=== PATIENT | female | born 1935 | race Caucasian/White ===

== ENCOUNTER 2017-01-22 12:35 | Outpatient (CLI) | payer MEDICARE, OTHER ==
[~2017-01-22] VITALS: Ht 165.1 cm; Wt 60.0 kg
[~2017-01-22 12:35] MED LIST: COUMADIN 5MG5 MG/TAB PO; DECADRON 4MG TAB4 MG PO; DILANTIN 100MG100 MG PO; LORTAB 5/500 501 TAB PO; MUCINEX DM 30 M1 TER PO; NORCO 325 MG-51 TAB PO; PROTONIX 40MG T40 MG PO; TESSALON PERLE100 MG PO; TESSALON PERLE200 MG PO; ZITHROMAX TRI-500 MG PO; ZITHROMAX Z PA250 MG PO; [UNRECOGNIZED DRUG - REMARK]
[2017-01-22] MEDS ORDERED: XARELTO20 MG PO (13:42)
[2017-01-22] MEDS ORDERED: DILANTIN 50MG C50 MG PO (13:43)
[2017-01-22] MEDS ORDERED: NORCO 325 MG-51 TAB PO (13:45)
[2017-01-22] MEDS ORDERED: CEPHALEXIN500 M1 PO (13:47)
[2017-01-22 13:58] VITALS: BP 143/54; PULSE 64; TEMP 97.5
[2017-01-22 15:30] VITALS: BP 132/51; PULSE 73; TEMP 98.1
== END 2017-01-22 16:43 | disposition home or self-care (01) ==
LOC: EUO 12:35 → COL.CAR 13:00 → EUO 16:43
DX: I63.9 Cerebral infarction, unspecified (principal); I08.0 Rheumatic disorders of both mitral and aortic valves; R94.31 Abnormal electrocardiogram [ECG] [EKG]
CPT/HCPCS: 27124; C1764

== ENCOUNTER 2019-12-10 12:44 | Inpatient (IN) | payer MEDICARE, OTHER ==
[~2019-12-10] VITALS: Ht 165.1 cm; Wt 64.7 kg
[~2019-12-10 12:44] MED LIST changes: +CEPHALEXIN500 M1 PO; +DILANTIN 50MG C50 MG PO; +XARELTO20 MG PO
[2019-12-10 13:30] VITALS: BP 123/57; PULSE 80; TEMP 99
[2019-12-10] MEDS ORDERED: VITAMIN B11000 MCG/M IM (13:35)
[2019-12-10] MEDS ORDERED: DILANTIN 100MG100 MG PO (13:36)
[2019-12-10] MEDS ORDERED: ULTRAM ER100 MG PO (13:37)
[2019-12-10] MEDS ORDERED: ZANAFLEX CAPSULE4 MG PO (13:38)
[2019-12-10 13:49] LABS: COLLECTION METHOD CLEAN CATCH
[2019-12-10 14:00] LABS: MUCOUS Present /lpf; PH 6 (5-8); SQUAMOUS EPITHELIAL 0-2 /hpf; URINE APPEARANCE Hazy; URINE BACTERIA Rare /hpf; URINE BILIRUBIN Negative (NEGATIVE); URINE BLOOD 3+ (NEGATIVE); URINE COLOR Yellow; URINE GLUCOSE Negative (NEGATIVE); URINE KETONE Negative (NEGATIVE); URINE LEUKOCYTE ESTERASE Trace (NEGATIVE); URINE NITRATE Positive (NEGATIVE); URINE PROTEIN(semi-quant) Negative (NEGATIVE); URINE RBC 20-50 /hpf; URINE UROBILINOGEN Negative (NEGATIVE)
--- NOTE | 2019-12-10 14:38 | NUR ---
Patient admitted from [facility]. Patient alert, sleepy. Patient transfered with EMS. Admission completed. Vss. Patient Pain with movement. Scds ble. Solomon to Rle. Cms intact. Int. Hospitalist aware of her arrival.
[2019-12-10 15:08] LABS: BASO % 0.3 % (0.0-2.0); EOS # 0.1 (0.0-0.7); EOS % 0.7 % (0-4.0); GRAN # 7.2 (1.4-6.5); GRAN % 79.9 % (42.2-75.2); HEMOGLOBIN 10.7 g/dl (12.5-16.0); LYMPH % 11.5 % (20.0-51.0); MEAN CELL VOLUME 87 fl (80.0-100.0); MEAN CORPUSCULAR HEMOGLOBIN 28 pg (27.0-31.0); MEAN CORPUSCULAR HGB CONC 33 g/dl (33.0-37.0); MEAN PLATELET VOLUME 10.2 fl (7.4-10.4); MONO # 0.6 (0.1-0.6); MONO % 7.2 % (1.7-9.3); PLATELET COUNT 162 K/mm3 (130-400); RED BLOOD COUNT 3.78 M/mm3 (4.10-5.30)
[2019-12-10 15:13] LABS: PROTHROMBIN TIME 11.7 SECONDS (9.7-12.8)
[2019-12-10 15:19] LABS: HEMATOCRIT 32.9 % (37.0-47.0)
[2019-12-10 15:46] LABS: ALBUMIN 3.7 gm/dL (3.5-5.0); BILIRUBIN,TOTAL 0.5 mg/dL (0.0-1.0); CREATININE, serum 0.59 (0.52-1.25); POTASSIUM 3.8 mmol/L (3.4-5.0); TOTAL PROTEIN 6.7 gm/dL (6.4-8.2)
[2019-12-10 15:53] LABS: PRE ALBUMIN 18.8 mg/dL (17.6-36.0)
[2019-12-10 16:21] VITALS: BP 129/38; PULSE 80; TEMP 99.1
--- NOTE | 2019-12-10 18:29 | NUR ---
Patient has been having alot of pain, repositioned for comfort. Pain medication per orders. Ice pack to hip. Labs, Ekg, Xrays completed. SHe has no interst in food. Hospitalist & ortho rounded. Scds & teds.
--- NOTE | 2019-12-10 19:40 | NUR ---
IV SITE TO LEFT ARM INFILTRATED. DC'D WITH ANGIOCATH INTACT. RESTARTED #22 TO LEFT WRIST ON SECOND ATTEMPT.
--- NOTE | 2019-12-10 20:01 | NUR ---
MEDICATED WITH MORPHINE 2MG IVP FOR LEFT HIP PAIN.
[2019-12-10 20:16] VITALS: BP 114/41; PULSE 45; TEMP 100.3
--- NOTE | 2019-12-10 21:30 | NUR ---
PT RESTING WELL AFTER LAST DOSE OF MORPHINE. IV SITE REMAINS PATENT TO LEFT WRIST.
[2019-12-11 00:17] VITALS: BP 115/36; PULSE 82; TEMP 98.6
--- NOTE | 2019-12-11 00:30 | NUR ---
Pt awake, has dentures and denture cup in her bed along with her denture tablets. Placed denture machine rug cleaner in cup with dentures at this time. Pt complains of pain, unable to tell this nurse where she was and why, only able to tell this nurse her name. Re-oriented at this time, she then could tell this nurse where she lived, in [place]. Medicated with [place] 1 tablet po and dose of Morphine 2mg IVP for left hip pain. Urine in rodríguez catheter remains cloudy. Encouraged oral intake, but only takes small sips. IVF infusing to left wrist without problem.
[2019-12-11 03:59] VITALS: BP 106/44; PULSE 75; TEMP 98.8
--- NOTE | 2019-12-11 04:00 | NUR ---
PT MORE ALERT, DENIES NEED FOR PAIN MEDS AT THIS TIME.
[2019-12-11 07:21] VITALS: BP 121/42; PULSE 76; TEMP 98.5
--- NOTE | 2019-12-11 08:00 | NUR ---
PATIENT IS A&O. VSS. PATIENT REPORTS PAIN IN LLE AT 3-4 AT REST. GAVE PRN NORCO, ONE TAB WITH AM MEDS TO KEEP PAIN MANAGED. SCD'S TO BLE. POSITIVE PEDAL PULSES TO BLE. ASHRAF TO DD. IV FLUIDS INFUSING VIA PUMP. NO C/O N/V. PATIENT DIDN'T HARDLY EAT BREAKFAST. PATIENT REPORTS DECREASED APPETITE BUT NO NAUSEA. HEAD TO TOE ASSESSMENT COMPLETE. HIP FX SURGERY PENDING. PATIENT WAS TAKING XARELTO AT HOME, NOW ON HOLD. NO OTHER NEEDS AT THIS TIME. CALL LIGHT IN REACH.
--- NOTE | 2019-12-11 09:15 | NUR ---
HOSPITALIST ROUNDING, SEE ORDERS.
--- NOTE | 2019-12-11 11:21 | NUR ---
SW met with the patient to discuss discharge plan. The patient lives in [place] with her , Domenica (ph#[phone]). She reports independence with ADLs and has a cane and walker. The patient's PCP is Dr. Bonifacio Armenta and she could not recall where she gets her medications at. The patient does not have advanced directives in EMR, but she reports that she does have them completed. She states that her is her DPOA-HC. The patient had a left hip fracture. SW discussed post-acute rehab after discharge The patient reports that she feels like she can handle things at home with her . SW attempted to contact the patient's to update and discuss post-acute rehab. SW left him a voicemail. The patient is to have surgical intervention with gamma nail fixation tomorrow. SW to continue to follow.
[2019-12-11 11:25] VITALS: BP 128/42; PULSE 80; TEMP 98.4
--- NOTE | 2019-12-11 14:25 | NUR ---
COVID SWAB OBTAINED AND SENT TO LAB.
--- NOTE | 2019-12-11 15:30 | NUR ---
ORTHO AT BEDSIDE. PLAN IS FOR SURGERY TOMORROW.
--- NOTE | 2019-12-11 17:00 | NUR ---
PATIENT'S IV SITE WENT BAD WHEN FLUSHING AFTER GIVING PRN MORPHIN FOR PAIN. CALLED LOG RAFTER TO TRY AND RE-START IV. 3 FAILED ATTEMPTS. PATIENT HAS VERY POOR VASCULAR ACCESS. ANOTHER NURSE COMING TO TRY AND GET IV ACCESS.
--- NOTE | 2019-12-11 20:15 | NUR ---
At time of assessment, patient is resting in bed. She appears sleepy but is able to answer all orientation questions. She complains of pain 9/10 so PRN morphine 2 mg is administered. Ice is reapplied to broken hip. Her heart sounds are normal/regular and lungs are clear. No edema is present. Vrea is draining yellow, clear urine. No new concerns at this time. Will continue to monitor.
[2019-12-11 20:32] VITALS: BP 139/47; PULSE 91; TEMP 98.3
[2019-12-12] VITALS (11 sets, daily range): BP systolic 103–136; BP diastolic 47–74; PULSE 45–91; TEMP 98.1–98.8
--- NOTE | 2019-12-12 04:42 | NUR ---
Patient is currently sleeping. She has received IV morphine 2mg x2 and 1 [place] tab tonight to manage pain. She has been told about her 1300 surgery time two times tonight and family is aware. No new concerns at this time.
[2019-12-12 07:23] LABS: BASO % 0.4 % (0.0-2.0); EOS # 0.2 (0.0-0.7); EOS % 2.6 % (0-4.0); GRAN # 5.8 (1.4-6.5); GRAN % 70.5 % (42.2-75.2); HEMOGLOBIN 10.8 g/dl (12.5-16.0); LYMPH # 1.4 (1.2-3.4); LYMPH % 17.5 % (20.0-51.0); MEAN CELL VOLUME 85 fl (80.0-100.0); MEAN CORPUSCULAR HEMOGLOBIN 29 pg (27.0-31.0); MEAN CORPUSCULAR HGB CONC 34 g/dl (33.0-37.0); MEAN PLATELET VOLUME 11.1 fl (7.4-10.4); MONO # 0.7 (0.1-0.6); MONO % 8.8 % (1.7-9.3); PLATELET COUNT 139 K/mm3 (130-400); RED BLOOD COUNT 3.78 M/mm3 (4.10-5.30); REDCELL DISTRIBUTION WIDTH-CV 13.7 % (11.5-14.5)
[2019-12-12 07:27] LABS: HEMATOCRIT 32.2 % (37.0-47.0)
[2019-12-12 07:35] LABS: CALCIUM 8.3 mg/dL (8.4-10.2); CREATININE, serum 0.54 (0.52-1.25); POTASSIUM 3.6 mmol/L (3.4-5.0)
--- NOTE | 2019-12-12 08:00 | NUR ---
PATIENT IS ORIENTED X2 BUT DISPLAYS OCCATIONAL FORGETFULNESS/CONFUSION. ORTHO ROUNDED THIS AM AND INFORMED PATIENT SURGERY WOULD BE EARLIER THAN EXPECTED. PATIENT IS CONFUSED STATING "HE LIED, MY SURGERY ISN'T TILL TOMORROW". NURSING REMINDED PATIENT TODAY IS "TOMORROW", TODAY IS THE SURGERY DAY. PATIENT WAS INFORMED BY ORTHO AND NURSING STAFF OF SURGERY YESTERDAY. PATIENT RE-ORIENTED. FAMILY CALLED AND NOTIFIED OF OR TIME CHANGE. CONSENT SIGNED BY PATIENT AND ALSO OBTAINED OVER THE PHONE FROM THE . CONSENT ON CHART. NPO FOR SURGERY. IV FLUIDS INFUSING INTO RIGHT WRIST IV. HEAD TO TOE COMPLETE.
--- NOTE | 2019-12-12 10:50 | NUR ---
PATIENT GOING DOWN TO OR VIA BED. CONSENT ON CHART. PRE-OPS GIVEN
--- NOTE | 2019-12-12 16:26 | NUR ---
The patient had surgery this day. PT/OT were ordered for the patient. Will continue to monitor for recommendations.
--- NOTE | 2019-12-12 19:45 | NUR ---
Pt. laying in bed at this time. Pt. is alert and oriented to self but forgetful, assessment complete. IV to lt. forearm patent, IV fluids infusing per orders. Pt. reports pain at this time stating "It hurts", will give pain medication. Pt. denies further needs, call light within reach.
[2019-12-13 00:33] VITALS: BP 134/119; BP 134/44; PULSE 83; TEMP 99.3
[2019-12-13 05:02] VITALS: BP 109/57; PULSE 67; TEMP 99.1
[2019-12-13 07:12] LABS: CALCIUM 8.5 mg/dL (8.4-10.2); CREATININE, serum 0.59 (0.52-1.25); POTASSIUM 4.1 mmol/L (3.4-5.0)
[2019-12-13 07:28] LABS: BASO % 0.3 % (0.0-2.0); EOS # 0.2 (0.0-0.7); EOS % 1.9 % (0-4.0); GRAN # 6.4 (1.4-6.5); GRAN % 71.2 % (42.2-75.2); HEMOGLOBIN 10.7 g/dl (12.5-16.0); LYMPH # 1.5 (1.2-3.4); LYMPH % 16.8 % (20.0-51.0); MEAN CELL VOLUME 86 fl (80.0-100.0); MEAN CORPUSCULAR HEMOGLOBIN 28 pg (27.0-31.0); MEAN CORPUSCULAR HGB CONC 33 g/dl (33.0-37.0); MEAN PLATELET VOLUME 11.6 fl (7.4-10.4); MONO # 0.8 (0.1-0.6); MONO % 9.4 % (1.7-9.3); PLATELET COUNT 120 K/mm3 (130-400); RED BLOOD COUNT 3.77 M/mm3 (4.10-5.30); REDCELL DISTRIBUTION WIDTH-CV 13.7 % (11.5-14.5)
[2019-12-13 07:48] VITALS: BP 129/61; PULSE 96; TEMP 97.6
--- NOTE | 2019-12-13 07:51 | NUR ---
Patient having complaints of pain. norco for pain given. She is holding her left thigh. Patient states she wants to go home. Left hip dressing CDI. Teds & scds ble. Iv was pulled this am by Jesse appears to have infiltrated. New Iv will need to be started for Iv antibiotics.
[2019-12-13 08:14] LABS: HEMATOCRIT 32.5 % (37.0-47.0)
--- NOTE | 2019-12-13 09:55 | NUR ---
Patient sitting up in chair. Slightly confused, keeps stating she wants to go home. Therapy worked with her. She was slow to move with walker. 2 assist. She did not want breakfast. [place] for pain, she reports pain 10/10 with movement & alot of facial grimacing. Left hip dressing CDI. Hoslitasist to round & rodríguez to be DC.
--- NOTE | 2019-12-13 10:38 | NUR ---
new iv started by AIV. Patient hard IV stick. Patient irritated/aggitated this am. Tried to be reassuring.
--- NOTE | 2019-12-13 11:16 | NUR ---
PT is recommending post acute rehab. SW met with the patient and provided [email or web address]s list of facilities in [place]. The patient's first choice is [facility] in [place] and second choice is [facility]. SW faxed referrals. Awaiting responses.
[2019-12-13 11:34] VITALS: BP 115/60; PULSE 86; TEMP 97.3
--- NOTE | 2019-12-13 11:38 | NUR ---
First visit from the borough coordinator. No needs right now.
--- NOTE | 2019-12-13 14:37 | NUR ---
Hospitalist team rounded. Orders obtained. Jody CRONIN. Full bed bath given. Patient completed therapy in bed. She had minimal interest in lunch. She remains confused.
[2019-12-13 15:35] VITALS: BP 126/55; PULSE 84; TEMP 98.1
--- NOTE | 2019-12-13 15:45 | NUR ---
Barbara clarke [facility] reports they can accept the patient for skilled at discharge. MARIAA informed the patient and the team. MARIAA attempted to contact the patient's to inform him but the phone kept ringing could not leave a message. MARIAA contacted [facility] to thank them for looking at the referral. Will continue to monitor.
--- NOTE | 2019-12-13 19:45 | NUR ---
Patient rested well this afternoon. Update given to her spouse over the phone. Cheerleading Coach attempted to help her with dinner, she refused. REport to night nurse Manisha
--- NOTE | 2019-12-13 20:31 | NUR ---
Pt up in chair, has eaten 50% of her supper. Medicated with HS meds including Oxycodone 5mg po. Is oriented to self. Unsure of date and time or where she is.
[2019-12-13 20:50] VITALS: BP 120/63; PULSE 110; TEMP 99.2
--- NOTE | 2019-12-13 22:00 | NUR ---
ASSISTED TO BED WITH ASSIST OF 2 STAFF. TRANSFERS FAIR. BED ALARM ON.
--- NOTE | 2019-12-13 23:30 | NUR ---
UP TO BSC, VOIDS AND BACK TO BED WITH ASSIST OF 2 STAFF.
--- NOTE | 2019-12-14 01:30 | NUR ---
PT MATTIE FOR HELP TO THE BATHROOM. HAS REMOVED DRSG'S TO LEFT HIP. TO BSC WITH 2 ASSIST, VOIDS AND BACK TO BED. NEW DRSG'S APPLIED.
--- NOTE | 2019-12-14 02:49 | NUR ---
PT USES CALL LIGHT, ASKING FOR PAIN PILL. MEDICATED WITH NORCO 5/325 1 TABLET AT THIS TIME FOR LEFT HIP AND RIGHT HEEL PAIN.
--- NOTE | 2019-12-14 03:25 | NUR ---
ASSISTED TO BSC, VOIDS AND BACK TO BED. MORE ORIENTED AT THIS TIME.
[2019-12-14 04:01] VITALS: BP 119/32; PULSE 79; TEMP 98.1
--- NOTE | 2019-12-14 06:08 | NUR ---
PT COMPLAINS OF LEFT HIP PAIN. MEDICATED WITH OXYCODONE 5MG PO NOW.
[2019-12-14 07:06] LABS: CALCIUM 8.2 mg/dL (8.4-10.2); CREATININE, serum 0.59 (0.52-1.25); POTASSIUM 3.5 mmol/L (3.4-5.0)
--- NOTE | 2019-12-14 08:00 | NUR ---
Patient a heavy x2 assist to bedside commode where she was continent of urine. Patient denies pain at this time, is alert and oriented. Patient has an abrasion on her right buttock that appears to be bleeding, site was dressed with mepilex. There is a bruise on her right heel but skin is intact and does not feel boggy. Patient denies further needs at this time, call light within reach.
[2019-12-14 09:22] VITALS: BP 126/38; PULSE 81; TEMP 98.2
--- NOTE | 2019-12-14 11:06 | NUR ---
MARIAA presented the IM form to the patient. The patient understood and gave SW permission to sign on her behalf. A copy was provided to the patient and original was placed in the chart.
[2019-12-14 11:47] VITALS: BP 114/37; PULSE 74; TEMP 98
[2019-12-14] MEDS ORDERED: XARELTO10 MG PO (13:34)
[2019-12-14] MEDS ORDERED: OMNICEF 300MG300 MG PO (13:34)
[2019-12-14] MEDS ORDERED: NORCO 325 MG-51 TAB PO (13:35)
[2019-12-14] MEDS ORDERED: ROXICODONE 55 MG/TAB PO (13:36)
[2019-12-14] MEDS ORDERED: SENEXON-S 50-81 EACH PO (13:37)
[2019-12-14] MEDS ORDERED: TYLENOL 500MG500 MG PO (13:37)
[2019-12-14] MEDS ORDERED: DULCOLAX S10 MG/SUPP RC (13:37)
[2019-12-14 13:48] VITALS: BP 114/37; PULSE 74; TEMP 98
--- NOTE | 2019-12-14 13:56 | NUR ---
The patient is to discharge to [facility] in [place] today, 12/13. Barbara from [facility] reports the patient will be transported at 1430. The team and patient were in agreeance. SW faxed discharge orders. MARIAA attempted to contact the patient's to inform him of transport time. The call went to voicemail, left message. There are no additional needs at this time.
--- NOTE | 2019-12-14 14:50 | NUR ---
Discharge teaching completed. Report called to recieving facility, discussed follow up appointments, wound care, and dressing changes. Recieving nurse verbalized understanding. Called patient's to report pending transfer. INT removed, catheter intact, hemostasis achieved. Patient dressed and belongings gathered, patient escorted to ED entrance via wheelchair where she entered facility transport.
== END 2019-12-14 14:50 | DRG 481 ==
LOC: SURG 12:44
PROVIDERS: Orthopaedic Surgery; Physician Assistant; ADMIT Student in an Organized Health Care Education/Training Program
PROC: 0QH736Z Insertion of Intramedullary Internal Fixation Device into Left Upper Femur, Percutaneous Approach (ICD-10-PCS; principal; 2019-12-12 11:30)
DX: S72.142A Displaced intertrochanteric fracture of left femur, initial encounter for closed fracture (principal); N39.0 Urinary tract infection, site not specified; I50.30 Unspecified diastolic (congestive) heart failure; E53.8 Deficiency of other specified B group vitamins; M19.90 Unspecified osteoarthritis, unspecified site; G40.909 Epilepsy, unspecified, not intractable, without status epilepticus; B96.20 Unspecified Escherichia coli [E. coli] as the cause of diseases classified elsewhere; W18.30XA Fall on same level, unspecified, initial encounter; D69.6 Thrombocytopenia, unspecified; Z86.718 Personal history of other venous thrombosis and embolism; Z86.73 Personal history of transient ischemic attack (TIA), and cerebral infarction without residual deficits
CPT/HCPCS: 99222-AI; 99231-AI; 99232-AI; A9284; C1713; C1769; J0690; J0696; J1100; J2250; J2270; J2370; J2405; J2704; J7030; J7120

== ENCOUNTER 2023-10-15 17:45 | Inpatient (IN) | payer MEDICARE, OTHER ==
[~2023-10-15] VITALS: Ht 160 cm; Wt 73.1 kg
[~2023-10-15 17:45] MED LIST changes: +DULCOLAX S10 MG/SUPP RC; +FERROUS SU325 MG/TAB PO; +OMNICEF 300MG300 MG PO; +ROXICODONE 55 MG/TAB PO; +SENEXON-S 50-81 EACH PO; +SENOKOT S 50 MG1 TAB PO; +TYLENOL 500MG500 MG PO; +ULTRAM ER100 MG PO; +VITAMIN B11000 MCG/M IM; +XARELTO10 MG PO; +ZANAFLEX CAPSULE4 MG PO
[2023-10-15] MEDS ORDERED: NS 1,000 ML IV ONE (18:15)
[2023-10-15 19:26] LABS: MEAN CELL VOLUME 94 fl (80.0-100.0); MEAN CORPUSCULAR HEMOGLOBIN 32 pg (27-31); MEAN CORPUSCULAR HGB CONC 34 g/dl (33.0-37.0); MEAN PLATELET VOLUME 12.7 fl (7.4-10.4); PLATELET COUNT 76 K/mm3 (130-400); REDCELL DISTRIBUTION WIDTH-CV 20.3 % (11.5-14.5)
[2023-10-15 20:01] LABS: ALANINE AMINOTRANSFERASE 15 U/L (0-55); ALBUMIN 2.9 gm/dL (3.4-4.8); ALKALINE PHOSPHATASE 106 U/L (40-150); ANION GAP 12 mmol/L (7-16); AST,SGOT 24 U/L (5-34); BLOOD UREA NITROGEN 33 mg/dL (10-20); CALCIUM 8.9 mg/dL (8.4-10.2); CHLORIDE 117 mmol/L (98-107); CREATININE, serum 1.09 mg/dL (0.57-1.11); GLUCOSE 118 mg/dL (70-99); POTASSIUM 4.1 mmol/L (3.5-4.5); SODIUM 145 mmol/L (136-145); TOTAL PROTEIN 6.1 gm/dL (6.2-8.1)
[2023-10-15] MEDS ORDERED: TYLENOL 500MG500 MG PO (20:08)
[2023-10-15 20:09] LABS: BAND 7 % (0-10); LYMPHOCYTE 10 % (20.0-51.0); NEUTROPHILS 81 % (42.0-75.2)
[2023-10-15] MEDS ORDERED: ULTRAM 50MG TAB50 MG PO (20:09)
[2023-10-15] MEDS ORDERED: KEPPRA1000 MG PO (20:10)
[2023-10-15] MEDS ORDERED: PROTONIX 40MG T40 MG PO (20:11)
[2023-10-15] MEDS ORDERED: ZOFRAN ODT4 MG PO (20:11)
[2023-10-15] MEDS ORDERED: MIRALAX PA17 GM/Dose PO (20:12)
[2023-10-15] MEDS ORDERED: LEXAPRO 5MG5 MG PO (20:12)
[2023-10-15] MEDS ORDERED: TYLENOL 325MG325 MG PO (20:13)
[2023-10-15 20:15] LABS: TROPONIN-I 1.148 ng/mL (0.00-0.033)
[2023-10-15] MEDS ORDERED: Cefepime 2 G in Water For Injection,Sterile 20 ML IV ONE (20:15)
[2023-10-15] MEDS ORDERED: VOLTAREN GEL 1%1 TU TP (20:16)
[2023-10-15] MEDS ORDERED: Heparin 5,000 UNITS/ML 1 ML VIAL IV PRN (20:30)
[2023-10-15] MEDS ORDERED: Heparin/D5W 250 ML IV SCH (20:30)
[2023-10-15] MEDS ORDERED: Heparin 5,000 UNITS/ML 1 ML VIAL IV ONE (20:30)
[2023-10-15 21:02] LABS: COLLECTION METHOD CLEAN CATCH
[2023-10-15 21:16] LABS: URINE APPEARANCE CLOUDY (CLEAR/HAZY); URINE BLOOD 1+ (NEGATIVE); URINE COLOR YELLOW (YELLOW); URINE GLUCOSE NEGATIVE (NEGATIVE); URINE KETONE 1+ (NEGATIVE); URINE NITRATE NEGATIVE (NEGATIVE); URINE PROTEIN(semi-quant) 1+ (NEGATIVE); URINE UROBILINOGEN 0.2 E.U/dL (0.2-1.0)
[2023-10-15 21:31] LABS: BILIRUBIN,TOTAL < 0.5 mg/dL (0.2-1.2)
[2023-10-15 21:41] LABS: BUDDING YEAST PRESENT (NOT PRESENT); SQUAMOUS EPITHELIAL 20-50 /hpf (0-10); URINE BACTERIA MANY /hpf (NONE SEEN); URINE WBC 20-50 /hpf (0-2)
[2023-10-15 21:47] LABS: ARTERIAL BLD GAS O2 SATURATION 95.6 % (92-100); ARTERIAL BLD GAS TCO2 CT 14.6; ARTERIAL BLOOD GAS BASE EXCESS -8.3 (-2-2); ARTERIAL BLOOD GAS PO2 77.2 mmHg (80-100); ARTERIAL BLOOD GAS pH 7.44 (7.35-7.45)
[2023-10-15 21:48] LABS: ARTERIAL BLOOD GAS PCO2 21.1 mmHg (35-45)
[2023-10-15 21:50] LABS: PARTIAL THROMBOPLASTIN TIME 29.6 SECONDS (26.0-37.0)
[2023-10-15 21:55] LABS: INR 1.3 (0.8-3.0); PROTHROMBIN TIME 14.4 SECONDS (9.7-12.8)
[2023-10-15] MEDS ORDERED: NS 1,000 ML IV SCH (22:00)
[2023-10-15] MEDS ORDERED: Albuterol/Ipratropium 3 MG-0.5 MG/3 ML Neb Soln IH PRN (22:00)
[2023-10-15] MEDS ORDERED: Vancomycin 1.5 GM,Special Dose/Pharmacy Prepared 1.5 GM in NS 250 ML IV SCH (22:00)
[2023-10-15] MEDS ORDERED: levETIRAcetam 100 ML IV SCH (22:00)
[2023-10-15] MEDS ORDERED: Vancomycin 1.25 GM,Special Dose/Pharmacy Prepared 1.25 GM in NS 250 ML IV ONE (23:00)
[2023-10-15 23:51] VITALS: BP 133/79; PULSE 128; TEMP 97.5
[2023-10-16] VITALS (1157 sets, daily range): BP systolic 93–127; BP diastolic 43–65; PULSE 89–129; TEMP 98.1–98.8; O2SAT 74–100
[2023-10-16] MEDS ORDERED: Furosemide 40 MG/4 ML VIAL IV ONE ×2 (00:45→08:45)
--- NOTE | 2023-10-16 01:05 | NUR ---
PATIENT ARRIVED FROM FLOOR DUE TO RAPID DECLINE. PATIENT PLACED ON BIPAP AND NOTED TO BE BREATHING 30-37 TIMES PER MINUTE. PATIENT ONLY RESPONDS TO PAINFUL STIMULI. PATIENT ARRIVED WITH HEPARIN RUNNING AT 700 UNITS/HR. PATIENT NOTED TO BE MOTTLED FROM LOWER EXTREMITIES TO CHEST. PATIENT IS COOL TO TOUCH WITH A CAP REFILL GREATER THAN 3 SECONDS. NICK GALVAN, AT BEDSIDE AWAITING FOR HUSBANDS ARRIVAL.
--- NOTE | 2023-10-16 01:20 | NUR ---
Patient arrived on medical floor via stretcher from ED. Assessment completed by nursing staff. While assessing patient, staff was unable to obtain oxygen saturation from either hand, however at this time patient was breathing from mouth and respirations were very labored. Patient continues to not verbally interact with staff but does hold eye contact when acknowledged. As oxygen saturation was unable to be obtained, nursing staff contacted respiratory therapy for further assistance. Patient came to medical with only IV access being a 24g IV in her right AC, contacted 3rd floor charge nurse and warehouse foreman for them to attempt access. At this time, 3rd floor charge, Juana ABDI, deemed it necessary to contact admitting hospitalist Stephanie Wakefield APRN for reassessment of the patient as she continued to mouth breathe and use her accessory muscle with each breath. After assessing patient situation, Stephanie made the call to transfer patient to ICU room 6 with orders to initiate BiPap and place rodríguez. Patient is brought to ICU via bed and bedside report is given to ICU nurse.
[2023-10-16 01:32] LABS: ARTERIAL BLD GAS O2 SATURATION 94.3 % (92-100); ARTERIAL BLD GAS TCO2 CT 10.4; ARTERIAL BLOOD GAS BASE EXCESS -15.1 (-2-2); ARTERIAL BLOOD GAS HCO3 9.7 meq/L (22-26); ARTERIAL BLOOD GAS PCO2 21.4 mmHg (35-45); ARTERIAL BLOOD GAS pH 7.28 (7.35-7.45)
[2023-10-16] MEDS ORDERED: Albuterol/Ipratropium 3 MG-0.5 MG/3 ML Neb Soln IH SCH (02:00)
--- NOTE | 2023-10-16 02:00 | NUR ---
PATIENT HAS ONLY MADE 15ML OF URINE AFTER LASIX WAS GIVEN UPSTAIRS. NICK QUINONES, NOTIFIED AND AWARE.
[2023-10-16 02:03] LABS: COLLECTION METHOD CATHETER
[2023-10-16 02:10] LABS: URINE APPEARANCE TURBID (CLEAR/HAZY); URINE BLOOD 1+ (NEGATIVE); URINE COLOR Dark Yellow (YELLOW); URINE GLUCOSE NEGATIVE (NEGATIVE); URINE KETONE TRACE (NEGATIVE); URINE NITRATE NEGATIVE (NEGATIVE); URINE PROTEIN(semi-quant) 1+ (NEGATIVE); URINE UROBILINOGEN 0.2 E.U/dL (0.2-1.0)
--- NOTE | 2023-10-16 02:30 | NUR ---
DR. LITTLEJOHN CONTACTED REGARDING THE NEED FOR A CENTRAL LINE. A CONSENT WAS OBTAINED FROM THE DUE TO PATIENTS AMS. AT 0250 DR. LITTLEJOHN PREPPED PATIENT FOR CENTRAL LINE PLACEMENT. AT 0304 DR. LITTLEJOHN FINISHED CENTRAL LINE PLACEMENT AND AN XRAY WAS OBTAINED FOR CONFIRMATION. PER DR. LITTLEJOHN OK TO USE CENTRAL LINE AT THIS TIME.
[2023-10-16 02:32] LABS: URINE WBC >50 /hpf (0-2)
[2023-10-16 02:34] LABS: URINE BACTERIA MODERATE /hpf (NONE SEEN)
[2023-10-16 02:35] LABS: BUDDING YEAST PRESENT (NOT PRESENT)
[2023-10-16] MEDS ORDERED: Iohexol 350 - 100 ML VIAL IV ONE (03:36)
[2023-10-16] MEDS ORDERED: NS 50 ML IV SCH (03:37)
[2023-10-16 03:50] LABS: CHOLESTEROL RISK RATIO 3.1
[2023-10-16 04:02] LABS: CALCIUM 8.3 mg/dL (8.4-10.2); CREATININE, serum 1.38 mg/dL (0.57-1.11); POTASSIUM 4.3 mmol/L (3.5-4.5)
[2023-10-16 04:28] LABS: BASO % 0.3 % (0.0-2.0); GRAN # 12.2 K/mm3 (1.4-6.5); GRAN % 88.2 % (42.2-75.2); HEMOGLOBIN 10.4 g/dl (12.5-16.0); LYMPH # 0.7 K/mm3 (1.2-3.4); LYMPH % 5.1 % (20.0-51.0); MEAN CORPUSCULAR HEMOGLOBIN 28 pg (27-31); MEAN CORPUSCULAR HGB CONC 32 g/dl (33.0-37.0); MONO # 0.7 K/mm3 (0.1-0.6); MONO % 5.2 % (1.7-9.3); PLATELET COUNT 64 K/mm3 (130-400); RED BLOOD COUNT 3.68 M/mm3 (4.10-5.30); REDCELL DISTRIBUTION WIDTH-CV 16.7 % (11.5-14.5)
[2023-10-16 04:52] LABS: HEMATOCRIT 32.5 % (37.0-47.0)
[2023-10-16 04:53] LABS: MEAN CELL VOLUME 88 fl (80.0-100.0)
[2023-10-16] MEDS ORDERED: Cefepime 1 G in Water For Injection,Sterile 10 ML IV SCH (06:00)
--- NOTE | 2023-10-16 06:54 | NUR ---
88 yo female admitted with mental status changes, respiratory failure, and concerns for sepsis of unclear etiology. ht 160 cm wt 62.4 kg SCr 1.09 with estimated CrCl ~27 ml/min half life 24.1 hours Plan: Will give an initial loading dose of vancomycin 1250 mg x1 (20 mg/kg); followed by a maintenance regimen of vancomycin 1000 mg q24h to target a goal trough of 15-20 mcg/ml. Will follow patient's renal function, micro data, and vancomycin levels as indicated to assess for any necessary changes to regimen. Thank you for this dosing consult.
--- NOTE | 2023-10-16 07:00 | NUR ---
REPORT RECEIVED FROM JIN GONZALES. PT IN BED, VSS. PT ON BIPAP, TOLERATING WELL. PT OPENS EYES BUT DOES NOT FOLLOW COMMANDS. HEPARIN AND BICARB INFUSING TO RIJ CENTRAL LINE, SITE WNL. ASHRAF CATHETER IN PLACE TO DEPENDENT DRAINAGE. STAGE 1 PRESSURE ULCER TO TOP OF COCCYX MEASURING 1X1 CM COVERED W/ MEPILEX DRESSING, PT ALSO ON TURN Q2HR TURN SCHEDULE. DEEP TISSUE INJURY TO R HEEL NOTED, PURPLE, CIRCULAR, APPROXIMATELY 3CM IN DIAMETER, SKIN INTACT. MEPILEX APPLIED, HEELS FLOATED. BED ALARM ON FOR PT SAFETY, SPOUSE AT BEDSIDE.
[2023-10-16 08:34] LABS: ARTERIAL BLD GAS TCO2 CT 16.8; ARTERIAL BLOOD GAS BASE EXCESS -6.8 (-2-2); ARTERIAL BLOOD GAS PCO2 24.6 mmHg (35-45); ARTERIAL BLOOD GAS PO2 113.8 mmHg (80-100); ARTERIAL BLOOD GAS pH 7.43 (7.35-7.45)
[2023-10-16] MEDS ORDERED: Pantoprazole 40 MG in NS 10 ML IV SCH (09:00)
[2023-10-16] MEDS ORDERED: Morphine 4 MG/ML VIAL IV PRN (10:45)
[2023-10-16] MEDS ORDERED: Morphine Oral Concentrate 20 MG/ML UD SL PRN (10:45)
--- NOTE | 2023-10-16 11:26 | NUR ---
Mold Presser spoke with Hospitalist who advised patient to remain on current cares until patient's son, Tex can arrive. Then plan will be to transition to comfort care. SW met with patient's , Domenica at bedside. Patient is from [place] but has been at [facility]. Patient's primary care physician is Dr. Armenta. Domenica advised patient does not have DPOA-HC and that he is legal next of kin. Domenica confirmed understanding of the above plan. Discharge Plan: Transition to comfort care when son arrives.
--- NOTE | 2023-10-16 13:49 | NUR ---
Data: Large number of family present when Hand Crown Pouncer offered visit. Family accepted prayer. Assessment: Family is processing Patient's condition within the Family. Plan of Care: Hand Crown Pouncer provided prayer. A Family member thanked Hand Crown Pouncer for the prayer. Chaplains will remain available as needed/requested while Patient is admitted to this hospital.
[2023-10-16] MEDS ORDERED: Sodium Bicarbonate/Water,Steri 1,150 ML IV SCH (15:00)
[2023-10-16] MEDS ORDERED: Heparin/D5W 250 ML IV SCH (15:45)
[2023-10-16] MEDS ORDERED: Heparin 5,000 UNITS/ML 1 ML VIAL IV PRN (15:45)
--- NOTE | 2023-10-16 19:00 | NUR ---
REPORT RECEIVED FROM JIN RAMIREZ. PATIENT RESTING IN BED ON BIPAP. HEPARIN DRIP MAINTAINED AT THIS TIME UNTIL NEXT HEPXA OBTAINED AT 2145. PATIENT DOES NOT FOLLOW COMMANDS AT THIS TIME WHICH IS UNCHANGED FROM DAYSHIFT NEURO ASSESSMENT.
[2023-10-16 22:18] LABS: MEAN CORPUSCULAR HGB CONC 38 g/dl (33.0-37.0); MEAN PLATELET VOLUME 12.4 fl (7.4-10.4); PLATELET COUNT 50 K/mm3 (130-400); RED BLOOD COUNT 2.58 M/mm3 (4.10-5.30)
[2023-10-16 22:27] LABS: HEMATOCRIT 25.5 % (37.0-47.0); HEMOGLOBIN 9.6 g/dl (12.5-16.0); MEAN CORPUSCULAR HEMOGLOBIN 37 pg (27-31)
[2023-10-16 22:28] LABS: CALCIUM 7.3 mg/dL (8.4-10.2); CREATININE, serum 1.66 mg/dL (0.57-1.11); MEAN CELL VOLUME 99 fl (80.0-100.0); POTASSIUM 4.2 mmol/L (3.5-4.5)
[2023-10-17] VITALS (1307 sets, daily range): BP systolic 90–107; BP diastolic 47–56; PULSE 81–89; TEMP 97.4–98.6; O2SAT 90–99
[2023-10-17 04:59] LABS: BASO # 0.1 K/mm3 (0.0-0.2); BASO % 0.4 % (0.0-2.0); EOS % 0.3 % (0.0-4.0); GRAN % 86.9 % (42.2-75.2); LYMPH # 0.9 K/mm3 (1.2-3.4); LYMPH % 6.8 % (20.0-51.0); MEAN CORPUSCULAR HGB CONC 34 g/dl (33.0-37.0); MONO # 0.7 K/mm3 (0.1-0.6); MONO % 4.9 % (1.7-9.3); REDCELL DISTRIBUTION WIDTH-CV 19.8 % (11.5-14.5)
[2023-10-17 05:00] LABS: HEMATOCRIT 27.5 % (37.0-47.0); HEMOGLOBIN 9.2 g/dl (12.5-16.0); MEAN CELL VOLUME 92 fl (80.0-100.0); MEAN CORPUSCULAR HEMOGLOBIN 31 pg (27-31)
[2023-10-17 05:01] LABS: PLATELET COUNT 49 K/mm3 (130-400)
[2023-10-17 05:32] LABS: CALCIUM 7.9 mg/dL (8.4-10.2); CREATININE, serum 1.69 mg/dL (0.57-1.11); POTASSIUM 4.1 mmol/L (3.5-4.5)
[2023-10-17 06:01] LABS: ARTERIAL BLD GAS O2 SATURATION 95.2 % (92-100); ARTERIAL BLD GAS TCO2 CT 20.6; ARTERIAL BLOOD GAS BASE EXCESS -4.9 (-2-2); ARTERIAL BLOOD GAS HCO3 19.5 meq/L (22-26); ARTERIAL BLOOD GAS PCO2 33.6 mmHg (35-45); ARTERIAL BLOOD GAS pH 7.38 (7.35-7.45)
--- NOTE | 2023-10-17 07:00 | NUR ---
Report received from JIN Stanton. Reports that pt had no acute events overnight. Remains on bipap. Is responsive to painful stimuli, moves left arm, and moans/grimaces occassionally. Central line to right IJ, rodríguez cath to dependent drainage, and bipap in place. Pt's being turned frequently.
[2023-10-17] MEDS ORDERED: Furosemide 40 MG/4 ML VIAL IV ONE (11:00)
--- NOTE | 2023-10-17 19:00 | NUR ---
REPORT RECEIVED FROM JIN FRYE. PATIENT RESTING ON BIPAP WITH BICARB DRIP RUNNING. DISCUSSED PERSISTANT DECREASED URINE OUTPUT AND THAT NEPHRO WAS CONSULTED AND AWARE.
[2023-10-18] VITALS (1150 sets, daily range): BP systolic 99–112; BP diastolic 46–60; PULSE 75–89; TEMP 97.4–98.4; O2SAT 92–99
[2023-10-18 04:43] LABS: BASO % 0.4 % (0.0-2.0); EOS # 0.1 K/mm3 (0.0-0.7); EOS % 0.7 % (0.0-4.0); GRAN # 9.3 K/mm3 (1.4-6.5); GRAN % 85.1 % (42.2-75.2); LYMPH # 0.8 K/mm3 (1.2-3.4); LYMPH % 7.4 % (20.0-51.0); MEAN CELL VOLUME 91 fl (80.0-100.0); MEAN CORPUSCULAR HGB CONC 34 g/dl (33.0-37.0); MONO # 0.6 K/mm3 (0.1-0.6); MONO % 5.6 % (1.7-9.3); RED BLOOD COUNT 2.81 M/mm3 (4.10-5.30); REDCELL DISTRIBUTION WIDTH-CV 18.3 % (11.5-14.5)
[2023-10-18 04:46] LABS: HEMOGLOBIN 8.6 g/dl (12.5-16.0); MEAN CORPUSCULAR HEMOGLOBIN 31 pg (27-31)
[2023-10-18 04:47] LABS: HEMATOCRIT 25.5 % (37.0-47.0); PLATELET COUNT 34 K/mm3 (130-400)
[2023-10-18 05:10] LABS: CREATININE, serum 1.82 mg/dL (0.57-1.11)
--- NOTE | 2023-10-18 07:00 | NUR ---
Report received from JIN Stanton; patient currently resting in bed with eyes closed. Patient has bicarb running through her central line in the right IJ, a Vera catheter is in place and patient is on BiPAP at 30% FiO2; no other lines or tubes are in place at this time. Patient's vital signs are within normal limits this morning.
--- NOTE | 2023-10-18 10:42 | NUR ---
Children'S Tutor spoke with bedside RN who advised plan is still to wait on son to arrive to make final decision on comfort care. SW contacted Nolberto at [facility] and faxed clinical updates.
[2023-10-18 11:21] LABS: MAGNESIUM 1.9 mg/dL (1.6-2.6); PHOSPHOROUS 4.7 mg/dL (2.3-4.7)
[2023-10-18] MEDS ORDERED: [UNRECOGNIZED DRUG - OTHER] IV SCH (16:00)
[2023-10-18] MEDS ORDERED: CALCIUM GLUCONATE IV SCH (16:00)
[2023-10-18] MEDS ORDERED: MAGNESIUM SULFATE IV SCH (16:00)
[2023-10-18] MEDS ORDERED: POTASSIUM CHLORIDE IV SCH (16:00)
[2023-10-18] MEDS ORDERED: KEPPRA 500MG500 MG (17:18)
[2023-10-18] MEDS ORDERED: Insulin Lispro (HumaLOG) SQ SCH (18:00)
--- NOTE | 2023-10-18 20:10 | NUR ---
Received report from JIN Tomas. Pt is currently alert and resting in bed with BiPap on and call light within reach and bed alarms on. Pt's vitals are stable at this time. Pt has a rodríguez in place with no kinks in tubing. Pt on TPN, Lipids, and Zosyn at this time that is running throuhg the RIJ (central line). Pt does not look in distress at this time. Will continue with pt care.
[2023-10-19] VITALS (933 sets, daily range): BP systolic 88–96; BP diastolic 43–45; PULSE 70–82; TEMP 97.4–98.2; O2SAT 96–100
[2023-10-19 05:41] LABS: CALCIUM 8.1 mg/dL (8.4-10.2); CREATININE, serum 2.1 mg/dL (0.57-1.11); MAGNESIUM 2.2 mg/dL (1.6-2.6); PHOSPHOROUS 3.7 mg/dL (2.3-4.7); POTASSIUM 3.6 mmol/L (3.5-4.5)
[2023-10-19 05:46] LABS: MEAN CELL VOLUME 88 fl (80.0-100.0); MEAN CORPUSCULAR HGB CONC 33 g/dl (33.0-37.0); RED BLOOD COUNT 3.15 M/mm3 (4.10-5.30); REDCELL DISTRIBUTION WIDTH-CV 16.4 % (11.5-14.5)
[2023-10-19 05:50] LABS: HEMATOCRIT 27.7 % (37.0-47.0); HEMOGLOBIN 9.1 g/dl (12.5-16.0); MEAN CORPUSCULAR HEMOGLOBIN 29 pg (27-31)
[2023-10-19 05:51] LABS: PLATELET COUNT 35 K/mm3 (130-400)
--- NOTE | 2023-10-19 06:12 | NUR ---
Pt had an uneventful night. Pt has been on the BiPap all night. Pt is usually goes back and forth between sleeping and restlessness. Early this morning the pt RR was in the high 30's and looked uncomfortable and morphine was given per EMAR and that helped the pt relax and the RR went back into the 20's. Pt's vitals have been stable throughout the night. Pt is alert but does not follow commands. Pt has a rodríguez in place with no kinks in tubing. Pt has TPN, Lipids, and zosyn running at this time. Pt was repositioned frequently. Will give report to day shift nurse.
[2023-10-19 06:20] LABS: BAND 2 % (0-10); EOSINOPHIL 2 % (0-4); LYMPHOCYTE 6 % (20.0-51.0); NEUTROPHILS 88 % (42.0-75.2); NUCLEATED RED BLOOD CELL 6 (0-6)
[2023-10-19 06:21] LABS: ANISOCYTOSIS 1+; PLATELET ESTIMATE DECREASED (NORMAL)
[2023-10-19 06:22] LABS: BURR CELLS 1+; OVALOCYTES 1+; SCHISTOCYTES 1+
--- NOTE | 2023-10-19 07:00 | NUR ---
Report received from JIN Campbell; patient currently resting in bed with eyes closed on BiPAP with FiO2 at 30%. Patient has TPN running through her central line, and a Vera catheter remains in place. Patient has no other lines or tubes in place at this time. Patient's vital signs are within normal limits. Patient's family will be in later today to discuss a plan of care going forward.
--- NOTE | 2023-10-19 15:15 | NUR ---
Family meeting with palliative care team at this time. Dr. Pacheco present with Martina CASH) & this RN. Family present - patient's (Domenica), son (Tex), daughter-in law & [address] Pacheco discussed multi-system failure with specifics to brain, lungs & kidneys. Dr. Pacheco discussed the need for dialysis if aggressive treatment is the choice made by the family. Dr. Pacheco also gave comfort care given as an option. Patient's stated that comfort care was their plan. The process for a transition to comfort care was discussed to include medications to help with comfort & removing the bipap mask. Discussed patient's larry; will contact Grove Worker to make arrangements. All questions answered. 1545 - This RN back to talk with family. Fr. Harris from [facility] will be here at 0900 tomorrow (10/19) for last rights; family updated on plan. Discussed that they did not need to be here for last rights if they did not choose. Family asked if patient would be moved to another room once comfort care was started; advised that it would depend on how the patient does once bipap is removed. All questions answered.
--- NOTE | 2023-10-19 15:24 | NUR ---
Sarita [phone], with [facility] calls this social welfare administrator and advises that they currently have patient as a client. Sarita asks to be given updates on patient's care.
[2023-10-19] MEDS ORDERED: MAGNESIUM SULFATE IV SCH (16:00)
[2023-10-19] MEDS ORDERED: POTASSIUM PHOSPHATE IV SCH (16:00)
[2023-10-19] MEDS ORDERED: CALCIUM GLUCONATE 1000 MG IV SCH (16:00)
[2023-10-19] MEDS ORDERED: [UNRECOGNIZED DRUG - OTHER] IV SCH (16:00)
--- NOTE | 2023-10-19 16:04 | NUR ---
Operation Manager participated in a family meeting which included patient's , son, daughter in law, and three granddaughters. Patient's family has decided to transition to comfort care tomorrow after the arrival of patient's brother this evening.
--- NOTE | 2023-10-19 19:36 | NUR ---
Received report from JIN Tomas. Pt is currently sleeping in bed with the call light within reach and bed alarms on. Pt has TPN, Lipids, and zosyn running at this time. Pt's vitals are stable at this time. Vera in place with no kinks in tubing. Will continue pt care.
[2023-10-20] VITALS (508 sets, daily range): BP systolic 93–101; BP diastolic 46–50; PULSE 76–80; TEMP 97.9–98.7; O2SAT 45–99
--- NOTE | 2023-10-20 03:21 | NUR ---
[facility] referral number [id number]. Per Dionne at [facility] call back prior to comfort plans this AM to update patient status.
--- NOTE | 2023-10-20 06:30 | NUR ---
Pt had an uneventful night. Pt's vitals were stable throughout the night. Pt slept most of the night. Pt on BiPap throughout the night. Pt has rodríguez in place with no kinks in tubing. Pt has TPN and zosyn running at this time. Pt is currently resting in bed with call light within reach and bed alarms on. Pt alert but does not follow commands or talk, pt moans when in pain. Repositioned frequently. Will give report to day shift nurse.
[2023-10-20 06:42] LABS: MEAN CORPUSCULAR HGB CONC 36 g/dl (33.0-37.0); RED BLOOD COUNT 2.46 M/mm3 (4.10-5.30); REDCELL DISTRIBUTION WIDTH-CV 24.9 % (11.5-14.5)
[2023-10-20 06:50] LABS: CREATININE, serum 2.34 mg/dL (0.57-1.11); MAGNESIUM 2.5 mg/dL (1.6-2.6); POTASSIUM 3.9 mEq/L (3.5-4.5)
[2023-10-20 06:59] LABS: HEMATOCRIT 24.8 % (37.0-47.0); HEMOGLOBIN 8.8 g/dl (12.5-16.0); MEAN CELL VOLUME 101 fl (80.0-100.0); MEAN CORPUSCULAR HEMOGLOBIN 36 pg (27-31)
[2023-10-20 07:00] LABS: PLATELET COUNT 29 K/mm3 (130-400)
--- NOTE | 2023-10-20 07:15 | NUR ---
REPORT RECIEVED FROM JIN CASTORENA. PT LAYING IN BED, VSS ON BIPAP. BIPAP SETTINGS CONFIRMED, PT TOLERATING BIPAP WELL. PT RESPONDS TO STIMULI AND REPOSITIONING BUT DOES NOT FOLLOW COMMANDS. TPN INFUSING TO CENTRAL LINE ORDERED, SITE WNL. ASHRAF CATHETER IN PLACE TO DEPENDENT DRAINAGE. BED ALARM ON FOR PT SAFETY.
[2023-10-20 08:19] LABS: ANISOCYTOSIS 3+; BAND 7 % (0-10); LYMPHOCYTE 8 % (20.0-51.0); NEUTROPHILS 77 % (42.0-75.2); NUCLEATED RED BLOOD CELL 5 (0-6); PLATELET ESTIMATE DECREASED (NORMAL)
[2023-10-20 08:20] LABS: HYPOCHROMIA 1+; OVALOCYTES 1+; SCHISTOCYTES 1+
[2023-10-20] MEDS ORDERED: Morphine 4 MG/ML VIAL IV PRN ×3 (09:45→10:15)
[2023-10-20] MEDS ORDERED: Scopolamine 1 MG Delivered 3-Day PATCH TD SCH (09:45)
[2023-10-20] MEDS ORDERED: Haloperidol Lactate 5 MG/ML VIAL IV PRN (09:45)
[2023-10-20] MEDS ORDERED: LORazepam 2 MG/ML 1 ML VIAL IV PRN ×2 (09:45→10:15)
[2023-10-20] MEDS ORDERED: Glycopyrrolate 0.2 MG/ML 1 ML VIAL IV PRN (09:45)
[2023-10-20] MEDS ORDERED: Morphine Oral Concentrate 20 MG/ML UD SL PRN (10:15)
--- NOTE | 2023-10-20 13:59 | NUR ---
0940 FAMILY AND ANIMAL BREEDER AT BEDSIDE. DECISION MADE TO WITHDRAW CARE AND PROVIDE COMFORT MEASURES. MEDS ADMINISTERED ORDERED, SEE EMAR. BIPAP REMOVED. 1156 VITAL SIGNS CEASED. TIME OF VERIFIED BY THIS NURSE AND JIN FRYE. SALES SUPPORT COORDINATOR AND SOCIAL WORK NOTIFIED. FAMILY PRESENT IN ROOM. 1313 BODY TAKEN BY [facility] STAFF. DENTURES SENT W/ BODY. ALL OTHER BELONGINGS TAKEN BY FAMILY.
--- NOTE | 2023-10-20 15:41 | NUR ---
Follow-up visit; Menswear Salesperson visited with family this morning and let them know had contacted a Sample Maker Hand; Father Steven from [facility] to come and pray "Last Rites" for Renetta this morning. Menswear Salesperson later joined family and Father Steven as he prayed for Renetta. Family thanked for her presence and for making arrangements for the Sample Maker Hand to come and deliver Last Rites.
== END 2023-10-20 13:13 | disposition expired | DRG 871 ==
LOC: COL.ER 17:45 → ICU 21:54 → MEDICAL 21:54 → ICU 10-16 01:05
PROVIDERS: Internal Medicine Pulmonary Disease; Nurse Practitioner Family; Physician Assistant; ADMIT Hospitalist
PROC: 02HV33Z Insertion of Infusion Device into Superior Vena Cava, Percutaneous Approach (ICD-10-PCS; principal; 2023-10-16)
PROC: 5A09557 Assistance with Respiratory Ventilation, Greater than 96 Consecutive Hours, Continuous Positive Airway Pressure (ICD-10-PCS; 2023-10-16)
DX: A41.9 Sepsis, unspecified organism (principal); G93.41 Metabolic encephalopathy; J96.01 Acute respiratory failure with hypoxia; I21.A1 Myocardial infarction type 2; N17.9 Acute kidney failure, unspecified; N39.0 Urinary tract infection, site not specified; I50.32 Chronic diastolic (congestive) heart failure; E87.20 Acidosis, unspecified; E87.3 Alkalosis; J90 Pleural effusion, not elsewhere classified; J98.11 Atelectasis; Z66 Do not resuscitate; Z51.5 Encounter for palliative care; Z20.822 Contact with and (suspected) exposure to COVID-19; E78.5 Hyperlipidemia, unspecified; E11.9 Type 2 diabetes mellitus without complications; D64.9 Anemia, unspecified; Z96.652 Presence of left artificial knee joint; R41.89 Other symptoms and signs involving cognitive functions and awareness; D69.6 Thrombocytopenia, unspecified; M19.90 Unspecified osteoarthritis, unspecified site; I45.10 Unspecified right bundle-branch block; B37.9 Candidiasis, unspecified; R65.20 Severe sepsis without septic shock; B95.2 Enterococcus as the cause of diseases classified elsewhere; G40.909 Epilepsy, unspecified, not intractable, without status epilepticus; Z86.718 Personal history of other venous thrombosis and embolism; Z86.73 Personal history of transient ischemic attack (TIA), and cerebral infarction without residual deficits; Z90.49 Acquired absence of other specified parts of digestive tract; Z88.6 Allergy status to analgesic agent; Z88.8 Allergy status to other drugs, medicaments and biological substances; Z79.01 Long term (current) use of anticoagulants; Z90.89 Acquired absence of other organs; Z79.899 Other long term (current) drug therapy; Z95.818 Presence of other cardiac implants and grafts; Z23 Encounter for immunization
CPT/HCPCS: C1751; C9113; J0612; J0692; J1450; J1644; J1940; J1953; J2060; J2270; J2543; J2704; J3370; J3411; J3475; J3480; J7030; J7050; J7070; Q3014; Q9967